=== PATIENT | female | born 1975 | race Two or more races ===

== ENCOUNTER 2020-11-04 22:46 | Emergency (ER) | payer BC, OTHER ==
[~2020-11-04] VITALS: Ht 167.6 cm; Wt 83.9 kg
[2020-11-04] MEDS ORDERED: diphenhydrAMINE HCL 50 MG/ML VIAL ONE (23:09)
[2020-11-04] MEDS ORDERED: methylPREDNISolone SOD SUCC 125 MG/2ML VIAL ONE (23:09)
[2020-11-04] MEDS ORDERED: FAMOTIDINE/PF INJ 20 MG/2 ML VIAL IV ONE ×2 (23:10→23:30)
[2020-11-04] MEDS ORDERED: diphenhydrAMINE HCL 50 MG/ML VIAL IV ONE (23:30)
[2020-11-04] MEDS ORDERED: methylPREDNISolone SOD SUCC 125 MG/2ML VIAL IV ONE (23:30)
[2020-11-05] MEDS ORDERED: EPIN0.3P3 IJ (00:01)
--- NOTE | 2020-11-05 00:03 | NUR ---
PT STATED SHE FEELS BETTER, VSS. SAT 100% ON ROOM AIR.
--- NOTE | 2020-11-05 00:26 | NUR ---
Patient discharged to home in stable condition. Written and verbal after care instructions given. Patient verbalizes understanding of instruction and RX. vss.
--- NOTE | 2020-11-05 00:26 | NUR ---
IV removed. Catheter intact and site benign. Pressure and 4x4 applied to site. No bleeding noted.
[2020-11-05 00:27] VITALS: BP 111/71
== END 2020-11-05 00:27 | disposition home or self-care (01) ==
LOC: ER 22:48
DX: T78.1XXA Other adverse food reactions, not elsewhere classified, initial encounter (principal); X58.XXXA Exposure to other specified factors, initial encounter
CPT/HCPCS: 96374; 96375; 99284; J1200; J2930; J3490